=== PATIENT | male | born 1965 ===

== ENCOUNTER 2018-08-12 12:01 | Emergency (ER) | payer OTHER ==
[~2018-08-12] VITALS: Ht 167.6 cm; Wt 65.8 kg
[~2018-08-12 12:01] MED LIST: BETHANECHOL CHL10 MG
[2018-08-12] MEDS ORDERED: TAMS0.4C (12:22)
[2018-08-12] MEDS ORDERED: CIPRO500 MG (12:22)
[2018-08-12] MEDS ORDERED: URIN D.S. TABL1 EACH PO (13:12)
== END 2018-08-12 13:40 | disposition home or self-care (01) ==
LOC: ER 12:01
DX: R33.8 Other retention of urine (principal); N40.0 Benign prostatic hyperplasia without lower urinary tract symptoms